=== PATIENT | female | born 1985 ===

== ENCOUNTER 2018-04-08 16:11 | Emergency (ER) | payer SELFPAY ==
[2018-04-08 16:22] VITALS: RESP 18; TEMP 98.2; O2SAT 99
[2018-04-08 17:11] LABS: HCG,QUALITATIVE URINE NEGATIVE (NEGATIVE); SQUAMOUS EPITHIAL 4 /hpf (0-5); URINE BILIRUBIN NEGATIVE (NEGATIVE); URINE BLOOD NEGATIVE (NEGATIVE); URINE CLARITY Clear (Clear); URINE COLOR Straw (YELLOW); URINE GLUCOSE (UA) NORMAL (Normal); URINE LEUKOCYTE ESTERASE TRACE Leu/uL (Negative); URINE PROTEIN NEGATIVE (NEGATIVE); URINE UROBILINOGEN NORMAL mg/dL (0.2-1.0)
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
[2018-04-08 19:50] VITALS: BP 116/74; PULSE 76
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
== END 2018-04-08 19:50 | disposition home or self-care (01) ==
LOC: C.ER 16:11
DX: R10.9 Unspecified abdominal pain (principal)